=== PATIENT | female | born 1930 | race African-American/Black ===

== ENCOUNTER 2018-02-28 15:51 | Emergency (ER) | payer MEDICARE ==
[~2018-02-28] VITALS: Ht 152.4 cm; Wt 56.7 kg
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
[2018-02-28 16:10] VITALS: BP_SYST 189
--- NOTE | 2018-02-28 17:01 | NUR ---
ER Dr. Benavides at bedside examining patient.
[2018-02-28] MEDS ORDERED: KETOROLAC TROMETHAMINE 60 MG/2 ML VIAL IM ONE (17:15)
--- NOTE | 2018-02-28 18:01 | NUR ---
Attempts were made contacting her son and daughter, Teddy. [phone], . Unable to speak to them, left messages to return call.
[2018-02-28] MEDS ORDERED: DIPH-TET-PERTUS Vaccine 0.5 ML VIAL (ADACEL) I.M. ONE (18:30)
--- NOTE | 2018-02-28 19:24 | NUR ---
Endorsed patient care to [facility] G[facility]. Patient in need of ride to home. Phone numbers given of children, son and daughter.
[2018-02-28 19:25] VITALS: BP_SYST 154
--- NOTE | 2018-02-28 19:35 | NUR ---
Patient given written and verbal discharge instructions and verbalizes understanding. ER MD discussed with patient the results and treatment provided. Patient in stable condition. ID arm band removed. Rx of Motrin given. Patient educated on pain management and to follow up with PMD. Pain Scale . Opportunity for questions provided and answered. Medication side effect fact sheet provided.
== END 2018-02-28 19:25 | disposition home or self-care (01) ==
LOC: EDBD 15:51 → SED 15:51
DX: S01.511A Laceration without foreign body of lip, initial encounter (principal); R03.0 Elevated blood-pressure reading, without diagnosis of hypertension; Z88.0 Allergy status to penicillin; W03.XXXA Other fall on same level due to collision with another person, initial encounter; Y93.89 Activity, other specified; Y92.89 Other specified places as the place of occurrence of the external cause; Y99.8 Other external cause status
CPT/HCPCS: 70450; 71045; 72125; 90471; 90715; 93005; 96372; 99284; J1885